=== PATIENT | male | born 1985 | race Caucasian/White ===

== ENCOUNTER 2018-09-30 18:19 | Emergency (ER) | payer OTHER, BC ==
[~2018-09-30] VITALS: Ht 185.4 cm; Wt 86.2 kg
[~2018-09-30 18:19] MED LIST: ALBUTEROL2.5 MG/0.1; APAP500 PO; ATIVAN0.5 MG PO; BACLOFEN 10MG T10 M1 PO; BACLOFEN 10MG T10 MG PO; BUPRENORPHIN-N1 EACH SL; BUPRENORPHINE HC2 MG PO; BUPRENORPHINE HC2 MG SL; BUPRENORPHINE HC2 MG TD; BUPRENORPHINE HC8 MG PO; BUPRENORPHINE HC8 MG SL; CLARITIN-D 24 H1 TAB PO; CLONAZEPAM 1 MG1 M1 PO; CLONIDINE0.1 PO; DEPAKOTE500 MG PO; DIAZEPAM 10 MG10 M1 PO; FLONASE 0.05%50 MCG NASAL; GABAPENTIN600 M1 PO; HYDROCODONE-AP1 EAC6 PO; HYOSCYAMINE0.375 MG PO; IBUPROFEN 200200 M1 PO; IBUPROFEN 800800 M1 PO; KEFLEX500 MG PO; KEPPRA 500 MG500 M2 PO; LEVAQUIN 500 M500 M2 PO; LEXAPRO 10 MG T10 M1 PO; LIDODERM 5%1 PATC1 TRANSDERM; LIORESAL 10 MG10 MG PO; LYRICA 75 MG CA75 MG PO; LYRICA150 MG PO; MIRALAX255 GM PO; MOBIC15 MG PO; NEURONTIN 300300 M1 PO; NEURONTIN 400400 M1 PO; NEURONTIN600 MG PO; NICOTINE TRANSD21 M1 TRANSDERM; NOHOMEMEDICATIONS; NORCO 5-325 TA1 EACH PO; OMEPRAZOLE40 MG PO; PERCOCET 10-321 EACH PO; PREDNISONE 20 M20 MG PO; REMERON15 MG PO; RESTORIL30 MG PO; SENOKOT-S1 TA2 PO; SUBOXONE 4 MG-1 EACH SL; TUSSIONEX PENNKI1 ML PO; VALIUM10 MG PO; VALIUM5 MG PO; VISTARIL 25 MG25 M1 PO; XANAX 0.25 MG0.25 MG; XANAX 0.25 MG0.25 MG PO; XANAX XR3 MG PO; ZANAFLEX4 MG PO; ZOLOFT100 MG PO
[2018-09-30] MEDS ORDERED: CLONAZEPAM 1 MG1 M1 PO (18:30)
[2018-09-30] MEDS ORDERED: MOBIC7.5 MG PO (19:39)
[2018-09-30] MEDS ORDERED: NORFLEX100 MG PO (19:39)
[2018-09-30 20:06] VITALS: BP 134/80
== END 2018-09-30 20:06 | disposition home or self-care (01) ==
LOC: ER 18:19
DX: S29.9XXA Unspecified injury of thorax, initial encounter (principal); S29.012A Strain of muscle and tendon of back wall of thorax, initial encounter; S16.1XXA Strain of muscle, fascia and tendon at neck level, initial encounter; K21.9 Gastro-esophageal reflux disease without esophagitis; F17.210 Nicotine dependence, cigarettes, uncomplicated; V89.2XXA Person injured in unspecified motor-vehicle accident, traffic, initial encounter; Y93.89 Activity, other specified; Y92.89 Other specified places as the place of occurrence of the external cause; Y99.8 Other external cause status

== ENCOUNTER 2018-10-20 02:29 | Emergency (ER) | payer BC, OTHER ==
[~2018-10-20] VITALS: Ht 182.9 cm; Wt 88.5 kg
[~2018-10-20 02:29] MED LIST changes: +MOBIC7.5 MG PO; +NORFLEX100 MG PO
[2018-10-20 02:39] VITALS: BP 135/79
[2018-10-20] MEDS ORDERED: BUTALB-APAP-CA1 EACH PO (02:57)
== END 2018-10-20 03:42 | disposition home or self-care (01) ==
LOC: ER 02:29
DX: R51 Headache (principal); F17.210 Nicotine dependence, cigarettes, uncomplicated; K21.9 Gastro-esophageal reflux disease without esophagitis; K58.9 Irritable bowel syndrome, unspecified

== ENCOUNTER 2019-02-23 00:10 | Emergency (ER) | payer BC, OTHER ==
[~2019-02-23] VITALS: Ht 185.4 cm; Wt 86.2 kg
[~2019-02-23 00:10] MED LIST changes: +BUTALB-APAP-CA1 EACH PO
[2019-02-23] MEDS ORDERED: CLONAZEPAM 0.50.5 M1 PO (01:09)
[2019-02-23] MEDS ORDERED: KLONOPIN0.5 MG PO (01:11)
[2019-02-23] MEDS ORDERED: RISPERDAL 3 MG T3 MG (01:22)
[2019-02-23] MEDS ORDERED: SUBOXONE 12 MG1 EACH (01:26)
[2019-02-23 01:45] LABS: HEMATOCRIT 39.7 % (42.0-52.0); MCH 27.9 pg (26.0-34.0); MCHC 32.7 g/dL (28.0-37.0); MCV 85.4 fL (80.0-100.0); PLATELET COUNT 152 thou/uL (150-400); RBC 4.65 mil/uL (4.50-6.00); WBC 24.1 thou/uL (4.0-11.0)
[2019-02-23 02:00] LABS: ANION GAP 11 mmol/L (7-16); BUN 21 mg/dL (7-18); CALCIUM 9.5 mg/dL (8.5-10.1); CHLORIDE 101 mmol/L (98-107); CO2 26 mmol/L (21-32); CREATININE 1.1 mg/dL (0.7-1.3); GLUCOSE 100 mg/dL (74-106); POTASSIUM 3.6 mmol/L (3.5-5.1); SODIUM 138 mmol/L (136-145)
[2019-02-23 02:06] LABS: ALBUMIN 4.5 g/dL (3.4-5.0); SALICYLATE < 2.8 mg/dL (2.8-20.0); SGOT 23 U/L (15-37); SGPT 25 U/L (30-65); TOTAL BILIRUBIN 0.4 mg/dL (<0.1-1.0); TOTAL PROTEIN 7.9 g/dL (6.4-8.2)
[2019-02-23 02:15] LABS: ABSOLUTE NEUTROPHILS 15.4 thou/uL (1.4-8.2); METAMYELOCYTES 4 %; MYELOCYTES 4 %
[2019-02-23 03:05] LABS: URINE BILIRUBIN NEGATIVE (Negative); URINE BLOOD NEGATIVE (Negative); URINE CLARITY CLEAR; URINE COLOR YELLOW; URINE GLUCOSE-RANDOM* NEGATIVE (Negative); URINE KETONES NEGATIVE (Negative); URINE LEUKOCYTES-REFLEX NEGATIVE (Negative); URINE NITRITE-REFLEX NEGATIVE (Negative); URINE PROTEIN (DIPSTICK) NEGATIVE (Negative); URINE SPECIFIC GRAVITY 1.015 (1.005-1.035); URINE UROBILINOGEN 0.2 E.U./dl (0.2-1.0)
[2019-02-23 03:37] LABS: AMP/METHAMP POSITIVE (Negative); BARBITURATES Negative (Negative); BENZODIAZEPINES Negative (Negative); COCAINE Negative (Negative); METHADONE Negative (Negative); OPIATES Negative (Negative); PCP Negative (Negative)
[2019-02-23 07:25] VITALS: BP 94/53
== END 2019-02-23 07:27 | disposition home or self-care (01) ==
LOC: ER 00:10
PROVIDERS: Emergency Medicine
DX: F15.151 Other stimulant abuse with stimulant-induced psychotic disorder with hallucinations (principal); D72.829 Elevated white blood cell count, unspecified; K21.9 Gastro-esophageal reflux disease without esophagitis; F17.210 Nicotine dependence, cigarettes, uncomplicated; Z87.820 Personal history of traumatic brain injury; Z88.8 Allergy status to other drugs, medicaments and biological substances

== ENCOUNTER 2019-07-02 04:23 | Emergency (ER) | payer BC, OTHER ==
[~2019-07-02] VITALS: Ht 185.4 cm; Wt 83.9 kg
[~2019-07-02 04:23] MED LIST changes: +CLONAZEPAM 0.50.5 M1 PO; +KLONOPIN0.5 MG PO; +RISPERDAL 3 MG T3 MG; +SUBOXONE 12 MG1 EACH PO
[2019-07-02 05:32] VITALS: BP 113/70
--- NOTE | 2019-07-02 08:13 | EKG ---
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: MANDY : 1985 Requested By: Dinh Nguyen Order Number: [id number] MD: Kevin Silvestre Measurements Intervals [place] Rate: 80 P: 72 ID: 175 QRS: 74 QRSD: 90 T: 16 QT: 366 QTc: 423 Interpretive Statements Sinus rhythm RSR' in V1 or V2, right VCD or RVH Compared to ECG 04/18/2017 23:01:04 Right ventricular hypertrophy now present RSR' in V1 or V2 now present Electronically Signed On 07-02-2019 8:13:18 CDT by Kevin Silvestre [email or web address] ��������������������������������������������� <ELECTRONICALLY SIGNED> ���������������������������������������� By: Kevin Silvestre MD ��������������������������������������������� 07/02/19 0813 042 6 Kevin Silvestre MD /EPI
[2019-07-03] MEDS ORDERED: PROTONIX40 MG PO (23:26)
== END 2019-07-02 05:57 | disposition home or self-care (01) ==
LOC: ER 04:23
DX: R07.89 Other chest pain (principal); F17.210 Nicotine dependence, cigarettes, uncomplicated; K58.9 Irritable bowel syndrome, unspecified; K21.9 Gastro-esophageal reflux disease without esophagitis; Z88.8 Allergy status to other drugs, medicaments and biological substances

== ENCOUNTER 2019-07-03 21:35 | Emergency (ER) | payer BC, OTHER ==
[~2019-07-03] VITALS: Ht 185.4 cm; Wt 83.9 kg
[2019-07-03] MEDS ORDERED: PROTONIX40 MG PO (23:26)
[2019-07-03 23:43] VITALS: BP 134/84
--- NOTE | 2019-07-04 17:25 | EKG ---
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 : 1985 Requested By: Dinh Nguyen Order Number: [id number] MD: Jeremiah Tam Measurements Intervals [place] Rate: 80 P: 58 SD: 184 QRS: 73 QRSD: 86 T: 40 QT: 365 QTc: 421 Interpretive Statements Sinus rhythm No significant abnormality Baseline wander in lead(s) V1,V2 Compared to ECG 07/02/2019 04:27:04 No significant change was found Electronically Signed On 07-04-2019 17:24:59 CDT by Jeremiah Tam [email or web address] ��������������������������������������������� <ELECTRONICALLY SIGNED> ���������������������������������������� By: Jeremiah Tam MD, [facility] ��������������������������������������������� 07/04/194 41 41 Jeremiah Tam MD, [facility] /EPI
== END 2019-07-03 23:43 | disposition home or self-care (01) ==
LOC: ER 21:35
DX: R07.89 Other chest pain (principal); F17.210 Nicotine dependence, cigarettes, uncomplicated; K58.9 Irritable bowel syndrome, unspecified; K21.9 Gastro-esophageal reflux disease without esophagitis; Z88.8 Allergy status to other drugs, medicaments and biological substances

== ENCOUNTER 2019-07-07 02:50 | Emergency (ER) | payer BC, OTHER ==
[~2019-07-07] VITALS: Ht 182.9 cm; Wt 81.7 kg
[~2019-07-07 02:50] MED LIST changes: +PROTONIX40 MG PO
[2019-07-07 03:28] LABS: ABSOLUTE NEUTROPHILS 3.9 thou/uL (1.4-8.2); BASOPHILS 0.5 % (0.0-2.0); EOSINOPHILS 2.5 % (0.0-3.0); HEMATOCRIT 38.2 % (42.0-52.0); HEMOGLOBIN 12.4 gm/dL (14.0-18.0); LYMPHOCYTES 17.3 % (24.0-44.0); MCH 28.1 pg (26.0-34.0); MCHC 32.5 g/dL (28.0-37.0); MCV 86.4 fL (80.0-100.0); MONOCYTES 4.9 % (1.0-8.0); PLATELET COUNT 145 thou/uL (150-400); POLYS 74.8 % (36.0-66.0); RBC 4.42 mil/uL (4.50-6.00); RDW 15.5 % (10.5-14.5); WBC 5.2 thou/uL (4.0-11.0)
[2019-07-07 03:34] LABS: ANION GAP 6 mmol/L (7-16); BUN 17 mg/dL (7-18); CALCIUM 9.3 mg/dL (8.5-10.1); CHLORIDE 104 mmol/L (98-107); CO2 30 mmol/L (21-32); CREATININE 1.2 mg/dL (0.7-1.3); GLUCOSE 98 mg/dL (74-106); SODIUM 140 mmol/L (136-145)
[2019-07-07 03:39] LABS: APTT 31.5 Seconds (24.5-32.8); INR 1.1; PROTIME 11.3 Seconds (9.3-11.4)
[2019-07-07 03:40] LABS: D-DIMER < 0.19 ug/mLFEU (0.19-0.50)
[2019-07-07 03:44] LABS: ALBUMIN 4.2 g/dL (3.4-5.0); MAGNESIUM 2.2 mg/dL (1.8-2.4); SALICYLATE < 2.8 mg/dL (2.8-20.0); SGOT 19 U/L (15-37); SGPT 20 U/L (30-65); TOTAL BILIRUBIN 0.4 mg/dL (<0.1-1.0); TOTAL PROTEIN 7.6 g/dL (6.4-8.2); TROPONIN-I <0.06 ng/mL (<0.06)
[2019-07-07] MEDS ORDERED: VISTARIL 25 MG25 M1 PO (04:15)
[2019-07-07] MEDS ORDERED: NAPROSYN500 MG PO (04:15)
[2019-07-07 04:23] LABS: URINE BILIRUBIN NEGATIVE (Negative); URINE BLOOD NEGATIVE (Negative); URINE CLARITY CLEAR; URINE COLOR YELLOW; URINE GLUCOSE-RANDOM* NEGATIVE (Negative); URINE KETONES NEGATIVE (Negative); URINE LEUKOCYTES-REFLEX NEGATIVE (Negative); URINE NITRITE-REFLEX NEGATIVE (Negative); URINE PROTEIN (DIPSTICK) NEGATIVE (Negative); URINE SPECIFIC GRAVITY 1.015 (1.005-1.035)
[2019-07-07 04:31] LABS: AMP/METHAMP POSITIVE (Negative); BARBITURATES Negative (Negative); BENZODIAZEPINES Negative (Negative); COCAINE Negative (Negative); METHADONE Negative (Negative); OPIATES Negative (Negative); PCP Negative (Negative)
[2019-07-07 04:51] VITALS: BP 115/70
--- NOTE | 2019-07-07 08:44 | EKG ---
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
== END 2019-07-07 04:54 | disposition home or self-care (01) ==
LOC: ER 02:50
PROVIDERS: Emergency Medicine
DX: R07.89 Other chest pain (principal); F15.10 Other stimulant abuse, uncomplicated; K58.9 Irritable bowel syndrome, unspecified; K21.9 Gastro-esophageal reflux disease without esophagitis; F41.9 Anxiety disorder, unspecified; F17.210 Nicotine dependence, cigarettes, uncomplicated; Z88.8 Allergy status to other drugs, medicaments and biological substances

== ENCOUNTER 2019-08-05 21:58 | Emergency (ER) | payer BC, OTHER ==
[~2019-08-05] VITALS: Ht 185.4 cm; Wt 86.2 kg
[~2019-08-05 21:58] MED LIST changes: +NAPROSYN500 MG PO
[2019-08-05 22:51] LABS: HEMATOCRIT 39.8 % (42.0-52.0); HEMOGLOBIN 13.4 gm/dL (14.0-18.0); MCH 28.9 pg (26.0-34.0); MCHC 33.6 g/dL (28.0-37.0); MCV 86.2 fL (80.0-100.0); RBC 4.62 mil/uL (4.50-6.00); RDW 15.4 % (10.5-14.5); WBC 8.2 thou/uL (4.0-11.0)
[2019-08-05 23:03] LABS: CALCIUM 8.4 mg/dL (8.5-10.1); CREATININE 0.7 mg/dL (0.7-1.3); POTASSIUM 3.5 mmol/L (3.5-5.1)
[2019-08-05 23:15] LABS: URINE BILIRUBIN NEGATIVE (Negative); URINE BLOOD NEGATIVE (Negative); URINE CLARITY CLEAR; URINE COLOR YELLOW; URINE GLUCOSE-RANDOM* NEGATIVE (Negative); URINE KETONES NEGATIVE (Negative); URINE LEUKOCYTES-REFLEX NEGATIVE (Negative); URINE NITRITE-REFLEX NEGATIVE (Negative); URINE PROTEIN (DIPSTICK) NEGATIVE (Negative); URINE SPECIFIC GRAVITY <= 1.005 (1.005-1.035); URINE UROBILINOGEN 0.2 E.U./dl (0.2-1.0)
[2019-08-05 23:24] LABS: AMP/METHAMP Negative (Negative); BARBITURATES Negative (Negative); BENZODIAZEPINES Negative (Negative); COCAINE Negative (Negative); METHADONE Negative (Negative); OPIATES Negative (Negative); PCP Negative (Negative)
[2019-08-06 06:57] LABS: ALBUMIN 4.3 g/dL (3.4-5.0); DIRECT BILIRUBIN < 0.1 mg/dL (<0.1-0.3); MAGNESIUM 2.1 mg/dL (1.8-2.4); SGOT 49 U/L (15-37); SGPT 35 U/L (30-65); TOTAL BILIRUBIN 0.3 mg/dL (<0.1-1.0); TOTAL PROTEIN 7.5 g/dL (6.4-8.2)
--- NOTE | 2019-08-06 17:41 | EKG ---
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
[2019-08-06 23:27] VITALS: BP 123/87
== END 2019-08-06 23:29 | disposition psychiatric hospital, planned readmission (93) ==
LOC: ER 21:58
PROVIDERS: Emergency Medicine
DX: F91.9 Conduct disorder, unspecified (principal); F10.129 Alcohol abuse with intoxication, unspecified; R44.3 Hallucinations, unspecified; K21.9 Gastro-esophageal reflux disease without esophagitis; K58.9 Irritable bowel syndrome, unspecified; F41.9 Anxiety disorder, unspecified; F17.210 Nicotine dependence, cigarettes, uncomplicated; Z88.8 Allergy status to other drugs, medicaments and biological substances

== ENCOUNTER 2019-09-10 19:06 | Emergency (ER) | payer BC, OTHER ==
[~2019-09-10] VITALS: Ht 182.9 cm; Wt 83.9 kg
[2019-09-10 20:25] VITALS: BP 141/84
== END 2019-09-10 20:25 | disposition home or self-care (01) ==
LOC: ER 19:06
DX: M54.5 Low back pain (principal); K21.9 Gastro-esophageal reflux disease without esophagitis; K58.9 Irritable bowel syndrome, unspecified; F41.9 Anxiety disorder, unspecified; F17.210 Nicotine dependence, cigarettes, uncomplicated; Z88.8 Allergy status to other drugs, medicaments and biological substances

== ENCOUNTER 2019-12-24 03:32 | Emergency (ER) | payer BC, OTHER ==
[~2019-12-24] VITALS: Ht 182.9 cm; Wt 86.2 kg
[2019-12-24 03:33] VITALS: BP 138/96
== END 2019-12-24 03:57 | disposition home or self-care (01) ==
LOC: ER 03:32
DX: M54.5 Low back pain (principal); Z53.21 Procedure and treatment not carried out due to patient leaving prior to being seen by health care provider

== ENCOUNTER 2021-03-26 16:19 | Emergency (ER) | payer BC, OTHER ==
[~2021-03-26 16:19] MED LIST changes: -GLEEVEC100 MG PO; -GLEEVEC400 MG PO; -METHOCARBAMOL750 MG PO; -SEROQUEL 100 M100 M1 PO; -SOMA350 MG PO
[2021-04-01] MEDS ORDERED: METHOCARBAMOL750 MG PO (11:07)
[2021-04-01] MEDS ORDERED: SOMA350 MG PO (11:07)
[2021-04-01] MEDS ORDERED: SEROQUEL 100 M100 M1 PO (11:08)
[2021-04-01] MEDS ORDERED: GLEEVEC400 MG PO (11:08)
[2021-04-01] MEDS ORDERED: GLEEVEC100 MG PO (11:09)
== END 2021-03-26 16:26 | disposition left against medical advice (07) ==
LOC: ER 16:19
DX: Z53.21 Procedure and treatment not carried out due to patient leaving prior to being seen by health care provider (principal)

== ENCOUNTER → 2021-03-26 | Emergency (ER) | payer BC, OTHER ==
[~2021-03-26] MED LIST changes: +GLEEVEC100 MG PO; +GLEEVEC400 MG PO; +METHOCARBAMOL750 MG PO; +SEROQUEL 100 M100 M1 PO; +SOMA350 MG PO
== END ==
LOC: ER 16:31
DX: Z13.89 Encounter for screening for other disorder (principal)